=== PATIENT | male | born 2005 | race Two or more races ===

== ENCOUNTER 2025-01-01 20:49 | Emergency (ER) | payer OTHER ==
[~2025-01-01] VITALS: Ht 185.4 cm; Wt 115.7 kg
[2025-01-01] MEDS ORDERED: NORFLEX100MG PO (21:12)
[2025-01-01] MEDS ORDERED: KETO10TA2 PO (21:12)
[2025-01-01] MEDS ORDERED: KETOROLAC TROMETHAMINE 60 MG VIAL IM ONE ×2 (21:15→21:19)
[2025-01-01] MEDS ORDERED: ORPHENADRINE CITRATE 30 MG/ML AMPUL IM ONE (21:15)
[2025-01-01] MEDS ORDERED: ORPHENADRINE CITRATE 30 MG/ML AMPUL ONE (21:18)
== END 2025-01-01 22:06 | disposition home or self-care (01) ==
LOC: ER 20:52
DX: M62.830 Muscle spasm of back (principal)